=== PATIENT | female | born 1955 | race Caucasian/White ===

== ENCOUNTER 2022-12-30 22:15 | Inpatient (IN) | payer MEDICARE, OTHER ==
[~2022-12-30] VITALS: Ht 167.6 cm; Wt 61.2 kg
[2022-12-30 22:46] LABS: HEMATOCRIT 38.8 % (31.2-41.9); MEAN CORPUSCULAR HEMOGLOBIN 31.3 uug (24.7-32.8); MEAN CORPUSCULAR VOLUME 93.8 fL (75.5-95.3); PLATELET COUNT (AUTO) 259 K/uL (179-408)
[2022-12-30 23:02] LABS: MAGNESIUM 1.8 mg/dL (1.8-2.4)
[2022-12-30 23:03] LABS: CARBON DIOXIDE 29 mmol/L (21-32); CHLORIDE 105 mmol/L (98-107); CREATININE 1.4 mg/dL (0.6-1.3); GLUCOSE 121 mg/dL (74-106); POTASSIUM 3.9 mmol/L (3.5-5.1); UREA NITROGEN, BLOOD 21 mg/dL (7-18)
[2022-12-30 23:09] LABS: ETHANOL < 3 MG/DL (0-0)
[2022-12-30 23:15] LABS: ALANINE AMINOTRANSFERASE 25 U/L (14-59); ALKALINE PHOSPHATASE 52 U/L (50-136); ASPARTATE AMINOTRANSFERASE 15 U/L (15-37); BILIRUBIN,DIRECT 0.2 mg/dL (0.0-0.2); BILIRUBIN,TOTAL 0.3 mg/dL (0.2-1.0); TOTAL PROTEIN, SERUM 6.8 g/dL (6.4-8.2)
[2022-12-30 23:16] LABS: ACETAMINOPHEN < 2.0 ug/mL (10-30)
--- NOTE | 2022-12-30 23:50 | NUR ---
Medically cleared by ERMD to be admitted to [facility]HU.
[2022-12-31 00:45] VITALS: BP 129/87
--- NOTE | 2022-12-31 00:49 | NUR ---
Transfered to MHU via wheelchair with no distress noted.
[2022-12-31] MEDS ORDERED: MAGNESIUM HYDROXIDE 30 ML LIQUID UDC PO PRN (01:00)
[2022-12-31] MEDS ORDERED: MAG HYDROX/AL HYDROX/SIMETH 30 ML LIQUID UDC PO PRN (01:00)
[2022-12-31] MEDS: TEMAZEPAM 7.5 MG CAPSULE PO PRN ×2 (01:50→20:38)
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
[2022-12-31] MEDS: CLONAZEPAM 0.5 MG TABLET PO PRN ×2 (03:37→21:41)
[2022-12-31 07:39] VITALS: BP 121/74
[2022-12-31] MEDS ORDERED: OLAN10TA3 PO (08:18)
[2022-12-31] MEDS ORDERED: DIVA250T4 PO (08:18)
[2022-12-31] MEDS ORDERED: ATEN25TA PO (08:18)
[2022-12-31 15:05] VITALS: BP 118/72
[2022-12-31] MEDS: OLANZAPINE ZYDIS 5 MG TAB.RAPDIS PO SCH ×2 (15:35→18:15)
[2022-12-31 20:16] LABS: *BILIRUBIN,URIN NEGATIVE (NEGATIVE); *BLOOD, URINE NEGATIVE (NEGATIVE); *CLARITY,URINE HAZY (CLEAR); *COLOR,URINE YELLOW (YELLOW); *KETONES,URINE TRACE (NEGATIVE); *UROBILINOGEN,URINE 0.2 E.U./dl (NORMAL); LEUKOCYTE ESTERASE ,URINE 1+ (NEGATIVE); NITRITE, URINE NEGATIVE (NEGATIVE); PH,URINE 5.5 (5.0-8.0); UGLUCOSE NEGATIVE (NEGATIVE)
[2022-12-31 20:36] VITALS: BP 106/78
[2022-12-31 20:41] LABS: BACTERIA,URINE FEW /HPF (NONE SEEN); SQUAMOUS EPITHELIAL CELL,UR FEW /HPF (NONE SEEN); WBC,URINE 20-50 /HPF (0-3)
--- NOTE | 2022-12-31 21:12 | NUR ---
GPS: Pt.is confused,forgetful and disorganized. No increased agitation noted. Compliant with her meds.and care so far. Insight and judgment remains impaired. Safe environment provided. Needs attended. Will continue to monitor.
[2022-12-31 22:02] LABS: *AMPHETAMINE, URINE NEGATIVE (NEGATIVE); *CANNABINOID, URINE POSITIVE (NEGATIVE); *COCCAINE, URINE NEGATIVE (NEGATIVE); *PHENCYCLIDINE SCREEN,URINE NEGATIVE (NEGATIVE)
[2023-01-01] MEDS: CLONAZEPAM 0.5 MG TABLET PO PRN ×3 (05:23→20:10)
--- NOTE | 2023-01-01 05:23 | NUR ---
GPS: Pt.is anxious,labile,easily irritable,and has disorganized thoughts. Re-directed and re-assured prn. Medicated with Klonopin 0.5mg PO per her request. Has poor insight into her mental illness and present situation. Safe environment provided. Needs attended.
[2023-01-01 07:30] VITALS: BP 117/87
[2023-01-01] MEDS: OLANZAPINE ZYDIS 5 MG TAB.RAPDIS PO SCH ×2 (08:46→16:38)
[2023-01-01] MEDS: ATENOLOL 25 MG TABLET PO SCH (08:46)
[2023-01-01] MEDS: CEphaleXIN 500 MG CAPSULE PO SCH ×3 (12:04→22:06)
--- NOTE | 2023-01-01 12:33 | NUR ---
Nursing -Had been in and out of the activity room, compliant with her routine medication, redirecteable Makin her simple needs known with the staff .
[2023-01-01] MEDS: ACETAMINOPHEN 325 MG TABLET PO PRN (13:50)
--- NOTE | 2023-01-01 14:16 | NUR ---
TASHIA Initial Discharge Note: Pt currently resides at home alone located at [id number] [place] [address]. TASHIA spoke with pt's daughter, Kandice ([phone]) who stated that pt cannot continue living on her own in this condition. Kandice asked for pt to discharge to a fpc facility. Per Kandice, pt does not have a DPOA or conservator. TASHIA will continue to work with pt, family and MD to ensure a safe and proper discharge plan.
--- NOTE | 2023-01-01 14:57 | NUR ---
Nursing - Complained of left arm pain rated 6/10, requesting prn , tylenol 650 mg po, verbalized adequate relief .
[2023-01-01 16:00] VITALS: BP 101/65
[2023-01-01 20:33] VITALS: BP_SYST 128; BP_SYST 99; BP_DIAS 59; BP_DIAS 80
[2023-01-01] MEDS: TEMAZEPAM 7.5 MG CAPSULE PO PRN (22:06)
[2023-01-02] MEDS: CLONAZEPAM 0.5 MG TABLET PO PRN ×3 (02:37→22:45)
--- NOTE | 2023-01-02 03:19 | NUR ---
GPS: Pt.has been asleep on and off on a franky-chair near nurses station per her request. She states that she doesn't feel safe to sleep in her room because her room mate has been talking to herself a lot tonight and she is bothered by that. Pt.has been needy,frequently at nurses station asking for things,labile,easily irritable and argumentative at times. Klonopin 0.5mg PO was just given for increased anxiety. Pt.continues to have disorganized thoughts,confusion and delusional thinking. Re-directed and re-assured prn. Pt's room mate has been noted to be asleep for several hours now although pt.continues to insist that room mate is still awake and continues to talk to herself. Safe environment provided.
[2023-01-02] MEDS: CEphaleXIN 500 MG CAPSULE PO SCH ×3 (06:22→22:39)
[2023-01-02 07:22] LABS: BILIRUBIN,TOTAL 0.4 mg/dL (0.2-1.0); MAGNESIUM 1.9 mg/dL (1.8-2.4); PHOSPHOROUS 2.7 mg/dL (2.5-4.9); POTASSIUM 4.4 mmol/L (3.5-5.1); TOTAL PROTEIN, SERUM 6.7 g/dL (6.4-8.2)
[2023-01-02 07:26] LABS: HEMATOCRIT 37.7 % (31.2-41.9); MEAN CORPUSCULAR HEMOGLOBIN 31.2 uug (24.7-32.8); MEAN CORPUSCULAR VOLUME 93.6 fL (75.5-95.3); PLATELET COUNT (AUTO) 244 K/uL (179-408)
[2023-01-02 07:30] VITALS: BP 146/77
[2023-01-02] MEDS: OLANZAPINE ZYDIS 5 MG TAB.RAPDIS PO SCH (08:57)
[2023-01-02] MEDS: ATENOLOL 25 MG TABLET PO SCH (08:57)
[2023-01-02 11:25] LABS: *BILIRUBIN,URIN NEGATIVE (NEGATIVE); *BLOOD, URINE NEGATIVE (NEGATIVE); *CLARITY,URINE CLEAR (CLEAR); *COLOR,URINE YELLOW (YELLOW); *KETONES,URINE NEGATIVE (NEGATIVE); *UROBILINOGEN,URINE 0.2 E.U./dl (NORMAL); LEUKOCYTE ESTERASE ,URINE TRACE (NEGATIVE); NITRITE, URINE NEGATIVE (NEGATIVE); PH,URINE 8.5 (5.0-8.0); UGLUCOSE NEGATIVE (NEGATIVE)
[2023-01-02 11:30] LABS: *CREATININE,URINE 76.4 mg/dL (30-125); *URINE TOTAL PROTEIN RANDOM 7.2 mg/dL (<150/24HR)
--- NOTE | 2023-01-02 12:54 | NUR ---
Nursing - Urine specimen obtained, sent to lab. as ordered. Dr Swenson in to see patient, was informed pt's daughter Genivieve ( [phone]) wants to talk to him.
[2023-01-02 14:05] LABS: BACTERIA,URINE NONE SEEN /HPF (NONE SEEN); RBC,URINE 0-3 /HPF (0-3); SQUAMOUS EPITHELIAL CELL,UR FEW /HPF (NONE SEEN); WBC,URINE 0-3 /HPF (0-3)
[2023-01-02 16:00] VITALS: BP 125/88
[2023-01-02] MEDS ORDERED: OLANZAPINE ZYDIS 5 MG TAB.RAPDIS SL SCH (17:00)
[2023-01-02] MEDS ORDERED: OLANZAPINE ZYDIS 5 MG TAB.RAPDIS PO SCH (17:00)
[2023-01-02 20:31] VITALS: BP 124/91
[2023-01-02] MEDS: TEMAZEPAM 7.5 MG CAPSULE PO PRN ×3 (20:36→23:40)
[2023-01-03] MEDS: TEMAZEPAM 7.5 MG CAPSULE PO PRN ×2 (00:47→22:02)
--- NOTE | 2023-01-03 00:51 | NUR ---
Report received from ongoing nurse. Patient is AAOX3 with confusion, she was seen interacting with other patients. She is compliant with meds. She went to her room and came back after one hour complaining of lack of sleep. Prn anxiety med have been prescribed, she went back to her room and finally fall asleep and remained for the rest of the night. She is very cooperative and easy to redirect. Will continue to monitor patient for safety.
--- NOTE | 2023-01-03 05:26 | NUR ---
Patient did woke up several times, going back and forth from her room at the nursing station, requesting tea and snacks. She is table and she is now walking around the unit.
[2023-01-03] MEDS: CEphaleXIN 500 MG CAPSULE PO SCH ×3 (06:07→20:17)
[2023-01-03 08:02] VITALS: BP 124/86
[2023-01-03] MEDS: DIVALPROEX SPRINKLE 125 MG CAP.SPRINK PO SCH ×3 (09:36→16:30)
[2023-01-03] MEDS: ARIPIPRAZOLE 5 MG TABLET PO SCH (09:36)
[2023-01-03] MEDS: ATENOLOL 25 MG TABLET PO SCH (09:37)
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
[2023-01-03] MEDS: ACETAMINOPHEN 325 MG TABLET PO PRN ×2 (13:31→20:17)
[2023-01-03 16:06] VITALS: BP 128/78
[2023-01-03 19:58] VITALS: BP 113/84
[2023-01-03] MEDS: CLONAZEPAM 0.5 MG TABLET PO PRN (20:17)
[2023-01-04] MEDS: CLONAZEPAM 0.5 MG TABLET PO PRN ×2 (00:32→20:12)
--- NOTE | 2023-01-04 04:45 | NUR ---
Patient has slept 0 hours so far this shift , despite receiving PRN medications, a book too read, having a shower, snacks, plus given encouragement and education on how to meditate. The patient has high energy and poor situational awareness and little impulse control. Literally coming out to nurses station every 30 minutes with unreasonable and unnecessary wants, questions and demands. The boundaries put in place by the staff, are ignored. The attention seeking behavior has been unwavering. The patient is needy and inpatient. Safety Stratiges remain in place. Medication seeking behavior has been ongoing throughout the night.
[2023-01-04] MEDS: CEphaleXIN 500 MG CAPSULE PO SCH ×2 (05:24→13:29)
[2023-01-04] MEDS: ARIPIPRAZOLE 5 MG TABLET PO SCH (08:55)
[2023-01-04] MEDS: DIVALPROEX SPRINKLE 125 MG CAP.SPRINK PO SCH ×3 (08:55→16:34)
[2023-01-04] MEDS: ATENOLOL 25 MG TABLET PO SCH (08:57)
[2023-01-04 08:58] VITALS: BP 109/68
[2023-01-04] MEDS: ACETAMINOPHEN 325 MG TABLET PO PRN (13:29)
[2023-01-04 15:18] VITALS: BP 122/88
--- NOTE | 2023-01-04 16:07 | NUR ---
Nursing- Stayed most of the time in the activity room, participating in her group activity, playing cards. Daughter was brought 3 books and magazine , as well as pain of pasonyamas .Dr Swenson was informed patient did'nt sleep well last night . Complained pain back of her neck, medicated with tylenol 650 mg, verbalized adequate relief.
[2023-01-04 20:10] VITALS: BP 111/64
[2023-01-04] MEDS: TEMAZEPAM 7.5 MG CAPSULE PO PRN (23:47)
--- NOTE | 2023-01-05 03:10 | NUR ---
Patient has been up and down many times during the shift. Coming to the nurses station to report " I have been sleeping but is there a tranquilizer to can give me ? My whole family does not sleep, it is a family thing. I need to go home to be with my dog. I need to go back to work. I smoke pot at home and that helps me sleep. " The patient is fixated and ruminates on how many hours of sleep is being reported to the Doctor. The patient is difficult to redirect and distract . No consideration for others or boundaries set by staff. Constant attention seeking and requests for unimportant, insignificant and inappropriate things. Poor situational awareness, poor insight and poor impulse control, easily irritate, disorganized and unrelenting with the staff in terms of needs. Safety Stratiges are in place. The patients progress is slow, yet she continues to push the issue of discharge. Sleep hours have been few. The patient has high energy and high anxiety. Medications provided as needed.
[2023-01-05] MEDS: CLONAZEPAM 0.5 MG TABLET PO PRN ×4 (04:26→21:08)
[2023-01-05 06:06] LABS: A/G RATIO 1.3 (0.7-1.7); ALBUMIN 3.5 g/dL (2.9-4.4); ALPHA-1-GLOBULIN 0.2 g/dL (0.0-0.4); ALPHA-2-GLOBULIN 0.6 g/dL (0.4-1.0); GLOBULIN, TOTAL 2.8 g/dL (2.2-3.9); M-SPIKE Not Observed g/dL (Not Observed)
[2023-01-05 07:41] VITALS: BP 110/83
[2023-01-05] MEDS: ARIPIPRAZOLE 5 MG TABLET PO SCH (08:37)
[2023-01-05] MEDS: DIVALPROEX SPRINKLE 125 MG CAP.SPRINK PO SCH ×2 (08:38→16:34)
[2023-01-05] MEDS: ATENOLOL 25 MG TABLET PO SCH (08:39)
--- NOTE | 2023-01-05 12:44 | NUR ---
Firearms Report: Collection Administrator completed and submitted a [employer] firearms report for 5150 grave disability certifications. A copy of report has been placed in patient chart.
[2023-01-05] MEDS: ACETAMINOPHEN 325 MG TABLET PO PRN (14:18)
--- NOTE | 2023-01-05 14:37 | NUR ---
TASHIA Family Contact: TASHIA spoke with pt's daughter, Kandice ([phone]) regarding pt's discharge plan to return home with daughter's assistance on . Kandice confirmed transportation at 1PM and stated she will continue helping the pt with groceries, weekly needs and appointments. TASHIA will arrange teletherapy for the pt. Daughter and pt are aware and agreeable.
[2023-01-05 16:00] VITALS: BP 106/81
--- NOTE | 2023-01-05 16:42 | NUR ---
GPS: Nursing Notes: Thought Disorder: Patient is awake and responding to her name, poor impulse control, argumentative, overly demanding, disruptive during change of shift report, loud and pressured speech, setting limits, but patient walk away while showing her middle finger to staff, compliant with her medications, then her behavior change, cooperative with nursing care, A/Ox4, participating in therapeutic groups, maxi casiano, claudia ANAYA, stated "The doctor toll me that I am leaving ... My daughter, the one that works with [employer] is going to pick me up..", "I missed my cat... I want to see my cat.. I have my own condo..". continue to monitor for safety, continue with treatment plan.
[2023-01-05 20:12] VITALS: BP 102/57
[2023-01-05] MEDS: TEMAZEPAM 7.5 MG CAPSULE PO PRN (23:32)
[2023-01-06 07:52] VITALS: BP 128/94
[2023-01-06] MEDS: CLONAZEPAM 0.5 MG TABLET PO PRN ×4 (08:22→22:41)
[2023-01-06] MEDS: DIVALPROEX SPRINKLE 125 MG CAP.SPRINK PO SCH ×2 (08:47→16:30)
[2023-01-06] MEDS: ARIPIPRAZOLE 5 MG TABLET PO SCH (08:48)
[2023-01-06] MEDS: ATENOLOL 25 MG TABLET PO SCH (08:48)
--- NOTE | 2023-01-06 13:50 | NUR ---
GPS: Nursing Notes: Thought Disorder: Patient is awake and responding to her name, cooperative with nursing care, compliant with her medications, stated "I am happy because I am going home .. I am going to see my cat..", participating in therapeutic groups, continue to monitor for safety, denies SI, following staff directions, argumentative at time, but following directions from staff, continue with treatment plan.
[2023-01-06 15:16] VITALS: BP 107/75
[2023-01-06 20:00] VITALS: BP 107/78
--- NOTE | 2023-01-06 20:30 | NUR ---
Received patient in her room in bed sleeping but easily arousable. Patient noted A/O x 3. she is hyperverbal and preoccupied about her nighttime sleep. She stated, "i have to sleep tonight. i think i am going to sleep well tonight. i got to". patient noted attention seeker. her V/S are stable. She was given PO fluids and snacks. all her needs are met. she is reassured for her safety. safety and fall precautions are in place. will continue to monitor.
[2023-01-06] MEDS: TEMAZEPAM 7.5 MG CAPSULE PO PRN (20:48)
--- NOTE | 2023-01-06 21:00 | NUR ---
Patient continue fixed on her sleep. she stated, "I want to sleep well tonight. please give me something that will help me sleep". patient was given Temazepam 7.5mg PO PRN, will continue to monitor.
[2023-01-06 21:36] VITALS: BP 107/78
--- NOTE | 2023-01-06 22:00 | NUR ---
Patient noted pacing the hallway, hyperverbal and intrusive. She stated, "I can't sleep. i need something stronger to put me to sleep". Patient was reassured. she was given Klonopin 0.5mg PO PRN. will continue to monitor.
[2023-01-07] MEDS: CLONAZEPAM 0.5 MG TABLET PO PRN (03:41)
--- NOTE | 2023-01-07 03:50 | NUR ---
patient is awake. She is anxious. she thinks she is been discharged in the morning when patient is schedule to be discharged . she was given Klonopin 0.5mg PO PRN. will continue to monitor.
[2023-01-07 07:30] VITALS: BP 130/88
[2023-01-07] MEDS ORDERED: ARIPIPRAZOLE 5 MG TABLET PO SCH (09:00)
[2023-01-07 09:59] VITALS: BP 130/88
[2023-01-07] MEDS: ATENOLOL 25 MG TABLET PO SCH (09:59)
[2023-01-07] MEDS: DIVALPROEX SPRINKLE 125 MG CAP.SPRINK PO SCH (10:00)
--- NOTE | 2023-01-07 11:53 | NUR ---
SW Discharge Note: Pt will be discharged home via pts daughterKandiec ([phone]) private vehicle transportation at 2PM. SW spoke with pts daughterKandice ([phone]) who states she is ready to accept the patient today. Pt is aware and agreeable with discharge plan. Pt is alert and oriented x4 and is cleared by the psychiatrist to return home with the help of her daughter, Kandice. Pt denies any suicidal or homicidal ideation. Pt refused longterm facilities offered by Dr. Swenson and this SW. Pt will follow-up at the facility with [facility] located at [address] [place] [id number] ([phone]) via teletherapy on Thursday the 2022 at 1:30PM and Flight Readiness Technician, Dr. Wong. Pt presents with calm mood and congruent affect. PHARMACY: [facility] [address] [place] [address] ([phone]).
[2023-01-07] MEDS ORDERED: ARIP5TAB10 PO (13:27)
[2023-01-07] MEDS ORDERED: ATEN25TA PO (13:27)
--- NOTE | 2023-01-07 14:55 | NUR ---
Pt has been released from the hold by the court. Pt is being discharged and being picked up by her daughter. PT is A/Ox4, aware of the discharge.
== END 2023-01-07 15:37 | disposition home or self-care (01) | DRG 885 ==
LOC: ER 22:19 → GPS 23:00
PROVIDERS: ADMIT Psychiatry & Neurology Psychiatry; ATTEND Nurse Practitioner Acute Care
DX: F29 Unspecified psychosis not due to a substance or known physiological condition (principal); N17.0 Acute kidney failure with tubular necrosis; N18.9 Chronic kidney disease, unspecified; Z87.891 Personal history of nicotine dependence; Z20.822 Contact with and (suspected) exposure to COVID-19; I12.9 Hypertensive chronic kidney disease with stage 1 through stage 4 chronic kidney disease, or unspecified chronic kidney disease; S02.2XXA Fracture of nasal bones, initial encounter for closed fracture; W18.30XA Fall on same level, unspecified, initial encounter; Y93.9 Activity, unspecified; Y92.009 Unspecified place in unspecified non-institutional (private) residence as the place of occurrence of the external cause
CPT/HCPCS: 36415; 70450; 83735; 83970; 84100; 84155; 84156; 84165; 84300; 85025; 93005; A4663; G0480